=== PATIENT | female | born 1970 | race Caucasian/White ===

== ENCOUNTER 2016-07-17 09:02 | Emergency (ER) | payer OTHER ==
[2016-07-17 09:21] LABS: BASOPHIL 0.1 % (0-2); EOSINOPHIL 0.3 % (0-5); HCT 39.1 % (37.0-47.0); HGB 13.5 g/dl (12.5-16.0); LYMPHOCYTE 13.2 % (15-48); MCH 31.4 pg (25.0-31.0); MCHC 34.5 g/dL (32.0-36.0); MCV 90.9 fL (78.0-100.0); MPV 9.5 fL (6.0-9.5); NEUTROPHIL 72.4 % (41-80); PLT 277 K/uL (150-400); RDW 13.4 % (11.5-14.0); WBC 12.4 K/uL (4.0-10.5)
[2016-07-17 09:21] LABS: BILIRUBIN NEGATIVE (NEGATIVE); BLOOD 2+ Ery/uL (NEGATIVE); COLOR YELLOW (YELLOW); GLUCOSE (U) NORMAL (NORMAL); KETONE (U) NEGATIVE (NEGATIVE); LEUKOCYTES TRACE Leu/uL (NEGATIVE); NITRITE NEGATIVE (NEGATIVE); PROTEIN 1+ mg/dL (NEGATIVE); SPECIFIC GRAVITY >=1.030 (1.001-1.030); UROBILINOGEN 0.2 mg/dL (0.2-1.0); pH 5.5 (5.0-9.0)
[2016-07-17 09:22] LABS: CLARITY HAZY (CLEAR)
[2016-07-17 09:23] LABS: BACTERIA TRACE; SQUAMOUS EPITHELIAL CELLS >50; URINARY RBC RARE; URINARY WBC RARE
[2016-07-17 09:38] LABS: ALBUMIN 3.5 g/dL (3.5-5.0); BILIRUBIN - TOTAL 0.4 mg/dL (0.1-1.0); CREATININE 0.6 mg/dL (0.5-1.0); GLOBULIN (CALCULATION) 2.9 g/dL (2.2-4.2); POTASSIUM 3.7 mmol/L (3.5-5.1); TOTAL PROTEIN 6.4 g/dL (6.4-8.3)
== END 2016-07-17 11:15 | disposition home or self-care (01) ==
LOC: FER 09:02
PROVIDERS: Emergency Medicine
DX: N13.2 Hydronephrosis with renal and ureteral calculous obstruction (principal); F17.210 Nicotine dependence, cigarettes, uncomplicated
CPT/HCPCS: 36415; 80053; 81001; 85025; J1170; J1885

== ENCOUNTER → 2020-05-07 18:16 | Emergency (ER) | payer OTHER ==
[~2020-05-07 18:16] MED LIST: BROMFED DM COU473 ML PO; COREG 3.125M3.125 MG PO; ISOSORBIDE MONO60 MG PO; NITROQUIK SL0.4 MG SL; PREDNISONE 20MG20 MG PO; VENTOLIN (2.5 MG/3 M INH; VENTOLIN HFA18 GM INH; VOLTAREN **OUT75 MG PO; ZPAK PO
== END | disposition left against medical advice (07) ==
LOC: FER 18:16
DX: F41.0 Panic disorder [episodic paroxysmal anxiety] (principal); Z53.8 Procedure and treatment not carried out for other reasons

== ENCOUNTER 2020-06-29 01:10 | Emergency (ER) | payer OTHER ==
[~2020-06-29 01:10] MED LIST changes: -BROMFED DM COU473 ML PO; -VENTOLIN HFA18 GM INH; -ZPAK PO
[2020-06-29 01:35] LABS: BASOPHIL 0.9 % (0-2); EOSINOPHIL 7.7 % (0-5); HGB 13.2 g/dl (12.5-16.0); LYMPHOCYTE 26.3 % (15-48); MCH 32.1 pg (25.0-31.0); MCHC 33.8 g/dL (32.0-36.0); MCV 94.9 fL (78.0-100.0); MONOCYTE 9.5 % (0-12); MPV 9.4 fL (6.0-9.5); NEUTROPHIL 55.3 % (41-80); NRBC 0; PLT 589 K/uL (150-400); RBC 4.11 M/uL (4.20-5.40); RDW 13.8 % (11.5-14.0); WBC 10.5 K/uL (4.0-10.5)
[2020-06-29 01:55] LABS: LACTIC ACID 2.4 mmol/L (0.4-1.9)
[2020-06-29 01:56] LABS: ALBUMIN 3.2 g/dL (3.4-5.0); BILIRUBIN - TOTAL 0.4 mg/dL (0.2-1.0); BUN/CREAT RATIO (CALC) 23.8 RATIO; CREATININE 0.63 mg/dL (0.51-0.95); GLOBULIN (CALCULATION) 3.6 g/dL; POTASSIUM 3.5 mmol/L (3.5-5.1); TOTAL PROTEIN 6.8 g/dL (6.4-8.2)
[2020-06-29] MEDS ORDERED: PREDNISONE 20MG20 MG PO (04:41)
[2020-06-29] MEDS ORDERED: BROMFED DM COU473 ML PO (04:41)
[2020-06-29] MEDS ORDERED: VENTOLIN HFA18 GM INH (04:41)
[2020-06-29] MEDS ORDERED: ZPAK PO (04:41)
== END 2020-06-29 05:17 | disposition home or self-care (01) ==
LOC: FER 01:10
PROVIDERS: Emergency Medicine Emergency Medical Services
DX: J44.1 Chronic obstructive pulmonary disease with (acute) exacerbation (principal); I25.2 Old myocardial infarction; F17.210 Nicotine dependence, cigarettes, uncomplicated; Z95.5 Presence of coronary angioplasty implant and graft; Z20.822 Contact with and (suspected) exposure to COVID-19
CPT/HCPCS: 36415; 36600; 71045; 80053; 82803; 83605; 84484; 85025; 87040; 93005; 94640; 94664; J0696; J1885; J2930; U0002

== ENCOUNTER 2020-08-28 06:56 | Emergency (ER) | payer OTHER ==
[~2020-08-28 06:56] MED LIST changes: +BROMFED DM COU473 ML PO; +VENTOLIN HFA18 GM INH; +ZPAK PO
[2020-08-28 07:50] LABS: BASOPHIL 0.6 % (0-2); EOSINOPHIL 2.9 % (0-5); HCT 45.2 % (37.0-47.0); HGB 15.1 g/dl (12.5-16.0); LYMPHOCYTE 14.9 % (15-48); MCH 32.1 pg (25.0-31.0); MCHC 33.4 g/dL (32.0-36.0); MCV 96.2 fL (78.0-100.0); MONOCYTE 7.5 % (0-12); MPV 9.1 fL (6.0-9.5); NEUTROPHIL 73.5 % (41-80); NRBC 0; PLT 537 K/uL (150-400); RDW 14.1 % (11.5-14.0); WBC 11.5 K/uL (4.0-10.5)
[2020-08-28 08:03] LABS: INR 1.02 (0.9-1.2); PROTHROMBIN TIME 12.7 SECONDS (11.4-13.6); PTT 25.2 SECONDS (22.2-34.7)
[2020-08-28 08:08] LABS: ALBUMIN 3.5 g/dL (3.4-5.0); BILIRUBIN - TOTAL 0.5 mg/dL (0.2-1.0); BUN/CREAT RATIO (CALC) 17.6 RATIO; CREATININE 0.74 mg/dL (0.51-0.95); GLOBULIN (CALCULATION) 3.3 g/dL; POTASSIUM 4.7 mmol/L (3.5-5.1); TOTAL PROTEIN 6.8 g/dL (6.4-8.2)
[2020-08-28 08:19] LABS: CKMB 2.2 ng/mL (0.0-3.6)
== END 2020-08-28 11:15 | disposition left against medical advice (07) ==
LOC: FER 06:56
PROVIDERS: Emergency Medicine
DX: I21.4 Non-ST elevation (NSTEMI) myocardial infarction (principal); I10 Essential (primary) hypertension; Z79.82 Long term (current) use of aspirin; Z79.01 Long term (current) use of anticoagulants; Z79.899 Other long term (current) drug therapy; Z79.02 Long term (current) use of antithrombotics/antiplatelets
CPT/HCPCS: 36415; 71046; 80053; 82553; 84484; 85025; 85610; 85730; 93005; J1644

== ENCOUNTER 2021-01-16 11:17 | Emergency (ER) | payer OTHER ==
[2021-01-16 12:21] LABS: BASOPHIL 0.7 % (0-2); EOSINOPHIL 9.2 % (0-5); HCT 42.8 % (37.0-47.0); HGB 14.3 g/dl (12.5-16.0); LYMPHOCYTE 25.8 % (15-48); MCH 31.4 pg (25.0-31.0); MCHC 33.4 g/dL (32.0-36.0); MCV 94.1 fL (78.0-100.0); MONOCYTE 13.5 % (0-12); MPV 9.4 fL (6.0-9.5); NEUTROPHIL 50.6 % (41-80); NRBC 0; PLT 401 K/uL (150-400); RBC 4.55 M/uL (4.20-5.40); RDW 14.6 % (11.5-14.0); WBC 5.3 K/uL (4.0-10.5)
[2021-01-16 12:36] LABS: INR 1.25 (0.9-1.2)
[2021-01-16 13:06] LABS: INFLUENZA A NAA NEGATIVE (NEGATIVE)
[2021-01-16 13:12] LABS: CORONAVIRUS 2019 SARS-COV-2 POSITIVE (NEGATIVE)
[2021-01-16 13:19] LABS: BUN/CREAT RATIO (CALC) 13.6 RATIO; C-REACTIVE PROTEIN 0.3 mg/dL (<=0.90); CREATININE 0.66 mg/dL (0.51-0.95); POTASSIUM 3.6 mmol/L (3.5-5.1)
[2021-01-16] MEDS ORDERED: ZOFRAN4 M1 PO (16:12)
[2021-01-16] MEDS ORDERED: MEDROL 4MG DOSEP4 MG PO (16:12)
== END 2021-01-16 16:35 | disposition home or self-care (01) ==
LOC: FER 11:17
PROVIDERS: Emergency Medicine; Nurse Practitioner Family
DX: U07.1 COVID-19 (principal); J44.9 Chronic obstructive pulmonary disease, unspecified; I10 Essential (primary) hypertension; I25.2 Old myocardial infarction; Z95.5 Presence of coronary angioplasty implant and graft; Z72.0 Tobacco use; Z23 Encounter for immunization
CPT/HCPCS: 36415; 71046; 80048; 82728; 83615; 84145; 84484; 85025; 85610; 86140; 93005; J1100; M0243; Q0244; U0002